=== PATIENT | female | born 1970 | race Two or more races ===

== ENCOUNTER 2024-11-30 13:38 | Inpatient (IN) | payer OTHER ==
[~2024-11-30] VITALS: Ht 170.2 cm; Wt 76.9 kg
[2024-11-30 14:32] VITALS: PULSE 122; RESP 18; O2SAT 97
[2024-11-30] MEDS: ACETAMINOPHEN 500 MG TAB or CAP PO ONE (14:43)
[2024-11-30 14:51] LABS: Urine Bacteria FEW /hpf (None Seen); Urine Blood 2+ /uL (Negative); Urine Clarity Turbid (Clear); Urine Color Light-Yellow (Yellow); Urine Protein, UAD 1+ (Negative); Urine Specific Gravity 1.012 (1.001-1.035); Urine Squamous Epithelial Cell FEW /hpf (<5); Urine Urobilinogen Normal (Negative); Urine WBC 114 /HPF (0-5); Urine pH 6.5 (5.0-9.0)
[2024-11-30] MEDS: SODIUM CHLORIDE 0.9% 1,000 ML IV ONE ×2 (14:55→15:08)
--- NOTE | 2024-11-30 15:04 | ED.PDOC ---
History of Present Illness HPI Comments 54F presents to the ER w/ no prior Hx associated to the c/c of Pubic Pain. Pt reports on having gradually worsening symptoms, of fever, Hematuria, fever and dysuria for 1 week. Pt reports that she saw her PCP on Tuesday of 11/28/23 and was prescribed of Flagyl which did not help the pain. PMHx of DM. Denies Chills, N/V/D, SOB, CP or no other associated symptom's, modifiers, recent injuries or sick contacts at this time. 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 Family History Family History: Reviewed,noncontributory to illness, Unknown Social History Smoker: Non-Smoker Alcohol: Denies ETOH Use Drugs: Denies Drug Use Lives In: Home Constitutional: reports: fever; denies: chills, diaphoresis, fatigue, malaise, sweats, weakness, others EENTM: denies: blurred vision, double vision, ear bleeding, ear discharge, ear drainage, ear pain, ear ringing, eye pain, eye redness, hearing loss, mouth pain, mouth swelling, nasal discharge, nose bleeding, nose congestion, nose pain, photophobia, tearing, throat pain, throat swelling, voice changes, others Respiratory: denies: cough, hemoptysis, orthopnea, SOB at rest, shortness of breath, SOB with excertion, stridor, wheezing, others Cardiovascular: denies: chest pain, dizzy spells, diaphoresis, Dyspnea on exertion, edema, irregular heart beat, left arm pain, lightheadedness, palpitations, PND, syncope, others Gastrointestinal: denies: abdomen distended, abdominal pain, blood streaked bowels, constipated, diarrhea, dysphagia, difficulty swallowing, hematemesis, melena, nausea, poor appetite, poor fluid intake, rectal bleeding, rectal pain, vomiting, others Genitourinary: reports: dysuria; denies: abnormal vagina bleeding, burning, dyspareunia, flank pain, frequency, hematuria, incontinence, pain, , vagina discharge, urgency, others Neurological: denies: dizziness, fainting, headache, left sided numbness, left sided weakness, numbness, paresthesia, pre-existing deficit, right sided numbness, right sided weakness, seizure, speech problems, tingling, tremors, weakness, others Musculoskeletal: denies: back pain, gout, joint pain, joint swelling, muscle pain, muscle stiffness, neck pain, others Integumetry: denies: bruises, change in color, change in hair/nails, dryness, laceration, lesions, lumps, rash, wounds, others Allergic/Immunocompromised: denies: Difficulty Healing, Frequent Infections, Hives, Itching, others Hematologic/Lymphatic: denies: anemia, blood clots, easy bleeding, easy bruising, swollen glands, others Endocrine: denies: excessive hunger, excessive sweating, excessive thirst, excessive urination, flushing, intolerance to cold, intolerance to heat, unexplained weight gain, unexplained weight loss, others Psychiatric: denies: anxiety, bipolar disorder, depression, hopeless, panic disorder, schizophrenia, sleepless, suicidal, others All Other Systems: Reviewed and Negative Physical Exam Exam Comments Tachycardic, Super Pubic Tenderness, Tachypneic, Febrile General Appearance: No Apparent Distress, Normal HEENT: Normal ENT Inspection, Pharynx Normal, TMs Normal Neck: Full Range of Motion, Non-Tender, Normal, Normal Inspection Respiratory: Chest Non-Tender, Lungs Clear, No Accessory Muscle Use, No Respiratory Distress, Normal Breath Sounds Cardiovascular: No Edema, No JVD, No Murmur, No Gallop, Normal Peripheral Pulses, Tachycardia Breast Exam: Deferred Gastrointestinal: No Organomegaly, Non Tender, No Pulsatile Mass, Normal Bowel Sounds, Soft Genitalia: Deferred Pelvic: Deferred Rectal: Deferred Extremities: No calf tenderness, Normal capillary refill, Normal inspection, Normal range of motion, Non-tender, No pedal edema Musculoskeletal : Apperance: Normal Neurologic: Alert, frame coverer II-XII nml as Tested, No Motor Deficits, Normal Affect, Normal Mood, No Sensory Deficits Cerebellar Function: Normal Reflexes: Normal Skin: Dry, Normal Color, Warm Lymphatic: No Adenopathy Was a procedure done? Was a procedure done?: No Differential Dx Considerations may include: Pyelonephritis, acute cystitis, viral syndrome, pneumonia X-Ray, Labs, Meds, VS Vital Signs Date Time Temp Pulse Resp B/P (MAP) Pulse Ox O2 Delivery O2 Flow Rate FiO2 11/30/24 16:45 99.2 100 17 113/70 (84) 95 99.2 11/30/24 16:45 11/30/24 15:45 100.5 11/30/24 15:45 100.5 114 19 127/66 (86) 95 100.5 11/30/24 14:43 101.4 11/30/24 14:32 101.4 122 18 127/69 (88) 97 101.4 11/30/24 14:32 122 18 97 Room Air 11/30/24 14:32 101.4 122 18 127/69 (88) 97 101.4 11/30/24 14:32 122 18 97 Room Air* 0 21 11/30/24 13:46 100.2 137 20 116/76 (89) 98 100.2 Lab Test 11/30/24 14:55 11/30/24 14:21 Range/Units White Blood Count 13.1 H 4.4-10.8 10^3/uL Red Blood Count 4.59 4.0-5.20 10^6/uL Hemoglobin 13.7 12.2-16.2 g/dL Hematocrit 41.4 36.0-46.0 % Mean Corpuscular Volume 90.3 80.0-100.0 fL Mean Corpuscular Hemoglobin 29.8 28.0-32.0 pg Mean Corpuscular Hemoglobin Concent 33.0 32.0-36.0 g/dL Red Cell Distribution Width 12.8 11.8-14.3 % Platelet Count 261 140-450 10^3/uL Mean Platelet Volume 7.9 6.9-10.8 fL Neutrophils (%) (Auto) 89.2 H 37.0-80.0 % Lymphocytes (%) (Auto) 5.6 L 10.0-50.0 % Monocytes (%) (Auto) 4.9 0.0-12.0 % Eosinophils (%) (Auto) 0.1 0.0-7.0 % Basophils (%) (Auto) 0.2 0.0-2.0 % Neutrophils # (Auto) 11.7 H 1.6-8.6 10 ^3/uL Lymphocytes # (Auto) 0.7 0.4-5.4 10 ^3/uL Monocytes # (Auto) 0.6 0-1.3 10 ^3/uL Eosinophils # (Auto) 0 0-0.8 10 ^3/uL Basophils # (Auto) 0 0-0.2 10 ^3/uL Nucleated Red Blood Cells 0.1 % Sodium Level 132 L 136-145 mmol/L Potassium Level 3.7 3.5-5.1 mmol/L Chloride Level 99 98-107 mmol/L Carbon Dioxide Level 23 20-31 mmol/L Anion Gap 10 5-15 Blood Urea Nitrogen 8 L 9-23 mg/dL Creatinine 0.83 0.550-1.02 mg/dL Glomerular Filtration Rate Calc 83 >90 mL/min BUN/Creatinine Ratio 9.6 L 10.0-20.0 Serum Glucose 245 H 74-106 mg/dL Lactic Acid Level 1.6 0.4-2.0 mmol/L Calcium Level 9.8 8.7-10.4 mg/dL Beta HCG, Quantitative 1.0 L 1.5-4.2 mIU/mL Urine Color Light-yellow Yellow Urine Clarity Turbid H Clear Urine pH 6.5 5.0-9.0 Urine Specific [place] 1.012 1.001-1.035 Urine Protein 1+ H Negative Urine Ketones 2+ H Negative Urine Blood 2+ H Negative /uL Urine Nitrite Negative Negative Urine Bilirubin Negative Negative Urine Urobilinogen Normal Negative mg/dL Urine Leukocyte Esterase 3+ Negative /uL Urine RBC 33 0 - 4 /hpf Urine Microscopic WBC 114 H 0-5 /HPF Urine Squamous Epithelial Cells Few <5 /hpf Urine Bacteria Few H None Seen /hpf Urine Glucose 4+ H Normal mg/dL Current Medications Medications (Trade) Dose Ordered Sig/Jamarcus Route Start Time Stop Time Status Last Admin Acetaminophen (Tylenol Tablet Or Capsule) 1,000 mg ONCE ONCE PO 11/30/24 14:45 11/30/24 14:53 DC 11/30/24 14:43 Sodium Chloride 1,000 ml @ 1,000 mls/hr Q1H ONCE IV 11/30/24 15:00 11/30/24 15:59 DC 11/30/24 14:55 Cefepime HCl 50 ml @ 12.5 mls/hr ONCE ONCE IV 11/30/24 15:00 11/30/24 18:59 11/30/24 15:16 Vancomycin HCl 250 ml @ 250 mls/hr ONCE ONCE IV 11/30/24 15:30 11/30/24 16:29 DC 11/30/24 15:33 Sodium Chloride 1,850 ml @ 1,850 mls/hr ONCE ONCE IV 11/30/24 15:45 11/30/24 16:44 DC 11/30/24 15:33 Time of 1ST Reevaluation: 15:25 Reevaluation 1ST: Unchanged Patient Education/Counseling: Diagnosis, Treatment, Prognosis Family Education/Counseling: No Family Present Departure 1 Departure Time of Disposition: 17:13 (Patient with acute pyelonephritis. Patient does not appear septic this time however again patient is high-risk we will discharge patient home with outpatient follow up.) Impression: Primary Impression: Acute pyelonephritis Disposition: ADMITTED INPATIENT Admit to: Med Surg Condition: Serious Critical Care Note Critical Care Time?: No Stability Stability form required: No I personally scribed for HARINDER FERNANDEZ MD ([email or web address]) on 11/30/24 at 15:04. Electronically submitted by Zion Kamara ([email or web address]). HARINDER FERNANDEZ MD Nov 30, 2024 15:04
[2024-11-30] MEDS: CEFEPIME 2GM/50ML NS 50 ML IV ONE (15:16)
[2024-11-30 15:21] LABS: Basophils # (auto) 0 10 ^3/uL (0-0.2); Basophils % (auto) 0.2 % (0.0-2.0); Eosinophils # (auto) 0 10 ^3/uL (0-0.8); Eosinophils % (auto) 0.1 % (0.0-7.0); Hematocrit 41.4 % (36.0-46.0); Hemoglobin 13.7 g/dL (12.2-16.2); Lymphocytes # (auto) 0.7 10 ^3/uL (0.4-5.4); Lymphocytes % (auto) 5.6 % (10.0-50.0); Mean Corpuscular Hemoglobin 29.8 pg (28.0-32.0); Mean Corpuscular Volume 90.3 fL (80.0-100.0); Monocytes # (auto) 0.6 10 ^3/uL (0-1.3); Monocytes % (auto) 4.9 % (0.0-12.0); Neutrophils # (auto) 11.7 10 ^3/uL (1.6-8.6); Neutrophils % (auto) 89.2 % (37.0-80.0); Nucleated Red Blood Cells % 0.1 %; Platelet Count (auto) 261 10^3/uL (140-450); Red Blood Cells 4.59 10^6/uL (4.0-5.20); Red Cell Distribution Width 12.8 % (11.8-14.3); White Blood Cell 13.1 10^3/uL (4.4-10.8)
[2024-11-30] MEDS: SODIUM CHLORIDE 0.9% 1,850 ML IV ONE (15:33)
[2024-11-30] MEDS: VANCOMYCIN 1GM/250ML KIT 250 ML IV ONE (15:33)
[2024-11-30 16:09] LABS: Chloride 99 mmol/L (98-107); Potassium 3.7 mmol/L (3.5-5.1)
[2024-11-30 16:10] LABS: Anion Gap 10 (5-15); Carbon Dioxide 23 mmol/L (20-31)
[2024-11-30 16:11] LABS: Calcium 9.8 mg/dL (8.7-10.4)
[2024-11-30 16:16] LABS: BUN/Creatinine Ratio 9.6 (10.0-20.0)
[2024-11-30 16:20] LABS: Blood Urea Nitrogen 8 mg/dL (9-23); Glucose 245 mg/dL (74-106); Sodium 132 mmol/L (136-145)
[2024-11-30 19:51] VITALS: PULSE 107; RESP 20; O2SAT 98
[2024-11-30] MEDS ORDERED: ONDANSETRON HCL 4 MG/2 ML VIAL IV PRN (20:15)
[2024-11-30] MEDS: MORPHINE SULFATE INJ 2 MG/ml SYRG IV ONE (20:20)
[2024-11-30] MEDS: ONDANSETRON HCL 4 MG/2 ML VIAL IV ONE (20:21)
--- NOTE | 2024-11-30 20:21 | DVHHP2 ---
Admitting Diagnosis: Abdominal pain History of Present Illness 54F presents to the ER w/ no prior Hx associated to the c/c of Pubic Pain. Pt reports on having gradually worsening symptoms, of fever, Hematuria, fever and dysuria for 1 week. Pt reports that she saw her PCP on Tuesday of 11/28/23 and was prescribed of Flagyl which did not help the pain. PMHx of DM. Denies Chills, N/V/D, SOB, CP or no other associated symptom's, modifiers, recent injuries or sick contacts at this time. 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 Family History Family History: Reviewed,noncontributory to illness, Unknown Social History Smoker: Non-Smoker Alcohol: Denies ETOH Use Drugs: Denies Drug Use Lives In: Home Allergies: Coded Allergies: Amoxicillin (Verified Allergy, Unknown, 11/30/24) Current Medications Current Medications Medications (Trade) Dose Ordered Sig/Jamarcus Route PRN Reason Start Time Stop Time Status Last Admin Ceftriaxone Sodium/Dextrose 50 ml @ 50 mls/hr DAILY IV 12/01/24 10:00 UNV Sodium Chloride (Saline Lock Ns) 10 ml Q8HR IV 11/30/24 22:00 UNV Docusate Sodium (Colace Capsule) 100 mg BIDPRN PRN PO FOR CONSTIPATION 11/30/24 20:15 UNV Acetaminophen (Tylenol Tablet) 650 mg Q6HP PRN PO PAIN SCALE 1-3 OR TEMP>100.4 11/30/24 20:15 UNV Acetaminophen/ Hydrocodone Bitart ([place] 5/325MG Tab) 1 tab Q4HP PRN PO MODERATE PAIN (4-6 PAIN SCALE) 11/30/24 20:15 UNV Hydromorphone HCl (Dilaudid Injection) 0.5 mg Q4HP PRN IV SEVERE PAIN (7-10 PAIN SCALE) 11/30/24 20:15 UNV Ondansetron HCl (Zofran) 4 mg Q4HP PRN IV NAUSEA / VOMITING 11/30/24 20:15 UNV Enoxaparin Sodium (Lovenox) 40 mg DAILY SC 12/01/24 10:00 UNV Vital Signs Vital Signs Date Time Temp Pulse Resp B/P (MAP) Pulse Ox O2 Delivery O2 Flow Rate FiO2 11/30/24 19:51 107 20 98 Room Air* 0 21 11/30/24 19:50 98.6 120/70 (87) 98.6 Physical Exam Generally-34 years old woman, well nourished well developed moderate distress HEENT-atraumatic normocephalic Heart-sinus tachycardic Lungs clear to auscultate bilaterally Abdomen soft, nondistended, suprapubic tenderness Musculoskeletal-no edema cyanosis positive CVA tenderness left Neuro-AO x3, no focal deficits Results Labs Test 11/30/24 14:55 11/30/24 14:21 Range/Units White Blood Count 13.1 H 4.4-10.8 10^3/uL Red Blood Count 4.59 4.0-5.20 10^6/uL Hemoglobin 13.7 12.2-16.2 g/dL Hematocrit 41.4 36.0-46.0 % Mean Corpuscular Volume 90.3 80.0-100.0 fL Mean Corpuscular Hemoglobin 29.8 28.0-32.0 pg Mean Corpuscular Hemoglobin Concent 33.0 32.0-36.0 g/dL Red Cell Distribution Width 12.8 11.8-14.3 % Platelet Count 261 140-450 10^3/uL Mean Platelet Volume 7.9 6.9-10.8 fL Neutrophils (%) (Auto) 89.2 H 37.0-80.0 % Lymphocytes (%) (Auto) 5.6 L 10.0-50.0 % Monocytes (%) (Auto) 4.9 0.0-12.0 % Eosinophils (%) (Auto) 0.1 0.0-7.0 % Basophils (%) (Auto) 0.2 0.0-2.0 % Neutrophils # (Auto) 11.7 H 1.6-8.6 10 ^3/uL Lymphocytes # (Auto) 0.7 0.4-5.4 10 ^3/uL Monocytes # (Auto) 0.6 0-1.3 10 ^3/uL Eosinophils # (Auto) 0 0-0.8 10 ^3/uL Basophils # (Auto) 0 0-0.2 10 ^3/uL Nucleated Red Blood Cells 0.1 % Sodium Level 132 L 136-145 mmol/L Potassium Level 3.7 3.5-5.1 mmol/L Chloride Level 99 98-107 mmol/L Carbon Dioxide Level 23 20-31 mmol/L Anion Gap 10 5-15 Blood Urea Nitrogen 8 L 9-23 mg/dL Creatinine 0.83 0.550-1.02 mg/dL Glomerular Filtration Rate Calc 83 >90 mL/min BUN/Creatinine Ratio 9.6 L 10.0-20.0 Serum Glucose 245 H 74-106 mg/dL Lactic Acid Level 1.6 0.4-2.0 mmol/L Calcium Level 9.8 8.7-10.4 mg/dL Beta HCG, Quantitative 1.0 L 1.5-4.2 mIU/mL Urine Color Light-yellow Yellow Urine Clarity Turbid H Clear Urine pH 6.5 5.0-9.0 Urine Specific [place] 1.012 1.001-1.035 Urine Protein 1+ H Negative Urine Ketones 2+ H Negative Urine Blood 2+ H Negative /uL Urine Nitrite Negative Negative Urine Bilirubin Negative Negative Urine Urobilinogen Normal Negative mg/dL Urine Leukocyte Esterase 3+ Negative /uL Urine RBC 33 0 - 4 /hpf Urine Microscopic WBC 114 H 0-5 /HPF Urine Squamous Epithelial Cells Few <5 /hpf Urine Bacteria Few H None Seen /hpf Urine Glucose 4+ H Normal mg/dL Primary Diagnosis Acute pyelonephritis Plan Positive UA, fever, tachycardic Ceftriaxone 2 g daily Check urine culture, blood culture IV fluids Pain control Bowel regimen Antiemetic Diabetic diet Full code Lovenox for DVT prophylaxis No GI prophylaxis needed Plan discussed with: Patient Date of Service: Nov 30, 2024 Billing Provider: LORI HERNANDEZ MD Common Visit Codes: [id number] INP/OBS CARE (HIGH) LORI HERNANDEZ MD Nov 30, 2024 20:21
[2024-11-30] MEDS ORDERED: DEXTROSE (50%) 50ML SYRG IV PRN (20:30)
[2024-11-30 21:00] VITALS: BP 120/72; PULSE 121; RESP 20; TEMP 100.6; O2SAT 96
[2024-11-30 21:30] VITALS: BP 120/72; PULSE 121; RESP 20; TEMP 100.6; O2SAT 96
[2024-11-30 21:45] VITALS: RESP 18
[2024-11-30] MEDS: ACCU-CHEK COMFORT CURVE STRIP VI SCH (22:00)
[2024-11-30] MEDS ORDERED: FER325T PO (22:27)
[2024-11-30] MEDS ORDERED: ASCO500T11 PO (22:27)
[2024-11-30] MEDS ORDERED: LUTE20CA PO (22:27)
[2024-11-30] MEDS ORDERED: ASHW125C PO (22:27)
[2024-11-30] MEDS ORDERED: CHOL25CH3 PO (22:28)
[2024-11-30] MEDS ORDERED: MAGN400T40 PO (22:29)
[2024-11-30] MEDS ORDERED: GLUC1CAP13 PO (22:31)
[2024-11-30] MEDS: LACTATED RINGER'S 1,000 ML IV ONE (23:02)
[2024-11-30] MEDS: SODIUM CHLOR 0.9% PF (SALINE LOCK) 10ML VIAL/SYR IV SCH (23:04)
[2024-11-30] MEDS: InsuLIN REG 1unit/0.01ml Soln (100units/ml) SC SCH (23:25)
[2024-12-01] VITALS (8 sets, daily range): BP systolic 99–123; BP diastolic 59–69; PULSE 78–122; RESP 16–24; TEMP 97.8–102.9; O2SAT 94–99
[2024-12-01] MEDS: HYDROmorphone HCL 2 MG/ML VL/or syr IV PRN (02:52)
[2024-12-01 06:57] LABS: Basophils # (auto) 0 10 ^3/uL (0-0.2); Basophils % (auto) 0.3 % (0.0-2.0); Eosinophils # (auto) 0 10 ^3/uL (0-0.8); Eosinophils % (auto) 0.2 % (0.0-7.0); Hemoglobin 11.7 g/dL (12.2-16.2); Lymphocytes # (auto) 1.1 10 ^3/uL (0.4-5.4); Lymphocytes % (auto) 9.7 % (10.0-50.0); Mean Corpuscular Hemoglobin 30.5 pg (28.0-32.0); Mean Corpuscular Hgb Conc. 34.4 g/dL (32.0-36.0); Mean Corpuscular Volume 88.7 fL (80.0-100.0); Monocytes # (auto) 0.8 10 ^3/uL (0-1.3); Monocytes % (auto) 7.7 % (0.0-12.0); Neutrophils % (auto) 82.1 % (37.0-80.0); Platelet Count (auto) 240 10^3/uL (140-450); Red Blood Cells 3.83 10^6/uL (4.0-5.20); Red Cell Distribution Width 12.8 % (11.8-14.3); White Blood Cell 10.9 10^3/uL (4.4-10.8)
[2024-12-01 07:18] LABS: Albumin 3.6 g/dL (3.2-4.8); Anion Gap 7 (5-15); Aspartate Aminotransferase 18 U/L (13-40); BUN/Creatinine Ratio 8.8 (10.0-20.0); Bilirubin, Total 0.8 mg/dL (0.2-1.0); Calcium 8.9 mg/dL (8.7-10.4); Carbon Dioxide 24 mmol/L (20-31); Chloride 104 mmol/L (98-107); Total Protein 5.9 g/dL (5.7-8.2)
[2024-12-01 07:21] LABS: Alanine Aminotransferase 57 U/L (7-40); Alkaline Phosphatase 134 U/L (46-116); Blood Urea Nitrogen 7 mg/dL (9-23); Glucose 202 mg/dL (74-106); Potassium 3.4 mmol/L (3.5-5.1); Sodium 135 mmol/L (136-145)
[2024-12-01] MEDS: DOCUSATE SOD 100 MG CAP PO PRN (08:44)
[2024-12-01] MEDS: cefTRIAXone 2GM/50ML D5W 50 ML IV SCH (08:44)
[2024-12-01] MEDS: ENOXAPARIN SOD 40 MG/0.4 ML SYRINGE SC SCH (08:44)
[2024-12-01] MEDS: HYDROcodone-ACET 5/325MG TAB PO PRN (08:45)
--- NOTE | 2024-12-01 13:31 | DVHPN2 ---
Reviewed: Care Plan, H&P, Labs, Medications, Previous Orders, Radiology Changes from previous H/P or p: No Changes Objective Vitals Vital Signs Date Time Temp Pulse Resp B/P (MAP) Pulse Ox O2 Delivery O2 Flow Rate FiO2 12/01/24 11:51 99.2 107 17 121/69 (86) 99 99.2 12/01/24 08:00 Room Air* 0 21 Intake/Output Intake and Output 12/01/24 07:00 Intake Total 4218 ml Balance 4218 ml Intake Oral 518 ml IV Total 3700 ml # Voids 3 Medications Current Medications Medications Dose Ordered Sig/Jamarcus Route Start Time Stop Time Status Last Admin Dose Admin Ceftriaxone Sodium/Dextrose 50 ml @ 50 mls/hr DAILY IV 12/01/24 10:00 12/01/24 08:44 50 MLS/HR Sodium Chloride 10 ml Q8HR IV 11/30/24 22:00 12/01/24 13:25 10 ML Docusate Sodium 100 mg BIDPRN PRN PO 11/30/24 20:15 12/01/24 08:44 100 MG Acetaminophen 650 mg Q6HP PRN PO 11/30/24 20:15 Acetaminophen/ Hydrocodone Bitart 1 tab Q4HP PRN PO 11/30/24 20:15 12/01/24 08:45 1 TAB Hydromorphone HCl 0.5 mg Q4HP PRN IV 11/30/24 20:15 12/01/24 02:52 0.5 MG Ondansetron HCl 4 mg Q4HP PRN IV 11/30/24 20:15 Enoxaparin Sodium 40 mg DAILY SC 12/01/24 10:00 12/01/24 08:44 40 MG Diagnostic Test (Pha) 1 strip ACHS 11/30/24 22:00 12/01/24 11:41 1 STRIP Insulin Human Regular ACHS SC 11/30/24 22:00 12/01/24 11:54 4 UNITS Dextrose 50 ml UD PRN IV 11/30/24 20:30 Laboratory Results Laboratory Tests 12/01/24 06:23 Chemistry Test 11/30/24 14:55 12/01/24 06:23 Calcium Level 9.8 mg/dL (8.7-10.4) 8.9 mg/dL (8.7-10.4) Albumin 3.6 g/dL (3.2-4.8) Total Protein 5.9 g/dL (5.7-8.2) LFT Test 12/01/24 06:23 Alanine Aminotransferase (ALT) 57 U/L (7-40) H Alkaline Phosphatase 134 U/L (46-116) H Aspartate Amino Transferase (AST) 18 U/L (13-40) Total Bilirubin 0.8 mg/dL (0.2-1.0) Urinalysis Test 11/30/24 14:21 Urine Color Light-yellow (Yellow) Urine Clarity Turbid (Clear) H Urine pH 6.5 (5.0-9.0) Urine Specific [place] 1.012 (1.001-1.035) Urine Protein 1+ (Negative) H Urine Ketones 2+ (Negative) H Urine Blood 2+ /uL (Negative) H Urine Nitrite Negative (Negative) Urine Bilirubin Negative (Negative) Urine Urobilinogen Normal mg/dL (Negative) Urine Leukocyte Esterase 3+ /uL (Negative) Urine RBC 33 /hpf (0 - 4) Urine Microscopic WBC 114 /HPF (0-5) H Urine Squamous Epithelial Cells Few /hpf (<5) Urine Bacteria Few /hpf (None Seen) H Urine Glucose 4+ mg/dL (Normal) H Microbiology Microbiology Date/Time Source Procedure Growth Status 11/30/24 14:55 Blood Blood Culture - Preliminary Resulted 11/30/24 14:21 Voided Urine Urine Culture - Preliminary Resulted Labs and/or images reviewed: Labs reviewed by me, Image(s) reviewed by me Assessment/Plan Assessment/Plan Sepsis secondary to urinary tract infection Acute urinary tract infection: Blood cultures urine cultures Rocephin Bacteremia with a Gram-negative rods: Continue Rocephin Acute dehydration: IV fluids Uncontrolled diabetes: Insulin sliding scale Plan discussed with: Patient Date of Service: Dec 01, 2024 Billing Provider: NIGEL NERI MD Common Visit Codes: [id number] INP/OBS CARE(HIGH) NIGEL NERI MD Dec 01, 2024 13:31
[2024-12-01] MEDS: ACETAMINOPHEN 325 MG TAB PO PRN (16:57)
[2024-12-02] VITALS (7 sets, daily range): BP systolic 108–125; BP diastolic 64–93; PULSE 89–108; RESP 16–18; TEMP 97.8–100.8; O2SAT 95–99
[2024-12-02 06:55] LABS: Basophils # (auto) 0 10 ^3/uL (0-0.2); Basophils % (auto) 0.5 % (0.0-2.0); Eosinophils # (auto) 0 10 ^3/uL (0-0.8); Eosinophils % (auto) 0.4 % (0.0-7.0); Hematocrit 33.4 % (36.0-46.0); Hemoglobin 11.3 g/dL (12.2-16.2); Lymphocytes % (auto) 14.2 % (10.0-50.0); Mean Corpuscular Hemoglobin 30.1 pg (28.0-32.0); Mean Corpuscular Hgb Conc. 33.7 g/dL (32.0-36.0); Mean Corpuscular Volume 89.3 fL (80.0-100.0); Monocytes # (auto) 0.6 10 ^3/uL (0-1.3); Monocytes % (auto) 7.6 % (0.0-12.0); Neutrophils # (auto) 5.7 10 ^3/uL (1.6-8.6); Neutrophils % (auto) 77.3 % (37.0-80.0); Platelet Count (auto) 246 10^3/uL (140-450); Red Blood Cells 3.74 10^6/uL (4.0-5.20); White Blood Cell 7.3 10^3/uL (4.4-10.8)
[2024-12-02 07:18] LABS: Alanine Aminotransferase 52 U/L (7-40); Albumin 3.5 g/dL (3.2-4.8); Alkaline Phosphatase 162 U/L (46-116); Anion Gap 8 (5-15); Aspartate Aminotransferase 28 U/L (13-40); Bilirubin, Total 0.7 mg/dL (0.2-1.0); Blood Urea Nitrogen 9 mg/dL (9-23); Carbon Dioxide 26 mmol/L (20-31); Chloride 104 mmol/L (98-107); Glucose 185 mg/dL (74-106); Potassium 3.2 mmol/L (3.5-5.1); Sodium 138 mmol/L (136-145)
--- NOTE | 2024-12-02 08:35 | DVHPN2 ---
Reviewed: Care Plan, H&P, Labs, Medications, Previous Orders, Radiology Changes from previous H/P or p: No Changes Objective Vitals Vital Signs Date Time Temp Pulse Resp B/P (MAP) Pulse Ox O2 Delivery O2 Flow Rate FiO2 12/02/24 05:00 97.8 89 18 108/66 (80) 95 97.8 12/01/24 20:00 Room Air* 0 21 Intake/Output Intake and Output 12/02/24 07:00 Intake Total 1500 ml Balance 1500 ml Intake Oral 1450 ml IV Total 50 ml # Voids 8 Medications Current Medications Medications Dose Ordered Sig/Jamarcus Route Start Time Stop Time Status Last Admin Dose Admin Ceftriaxone Sodium/Dextrose 50 ml @ 50 mls/hr DAILY IV 12/01/24 10:00 12/01/24 08:44 50 MLS/HR Sodium Chloride 10 ml Q8HR IV 11/30/24 22:00 12/02/24 06:00 10 ML Docusate Sodium 100 mg BIDPRN PRN PO 11/30/24 20:15 12/01/24 08:44 100 MG Acetaminophen 650 mg Q6HP PRN PO 11/30/24 20:15 12/02/24 00:48 650 MG Acetaminophen/ Hydrocodone Bitart 1 tab Q4HP PRN PO 11/30/24 20:15 12/01/24 08:45 1 TAB Hydromorphone HCl 0.5 mg Q4HP PRN IV 11/30/24 20:15 12/01/24 02:52 0.5 MG Ondansetron HCl 4 mg Q4HP PRN IV 11/30/24 20:15 Enoxaparin Sodium 40 mg DAILY SC 12/01/24 10:00 12/01/24 08:44 40 MG Diagnostic Test (Pha) 1 strip ACHS 11/30/24 22:00 12/02/24 06:37 1 STRIP Insulin Human Regular ACHS SC 11/30/24 22:00 12/02/24 06:40 4 UNITS Dextrose 50 ml UD PRN IV 11/30/24 20:30 Laboratory Results Laboratory Tests 12/02/24 05:54 Chemistry Test 12/02/24 05:54 Albumin 3.5 g/dL (3.2-4.8) Calcium Level 9.0 mg/dL (8.7-10.4) Total Protein 6.0 g/dL (5.7-8.2) LFT Test 12/02/24 05:54 Alanine Aminotransferase (ALT) 52 U/L (7-40) H Alkaline Phosphatase 162 U/L (46-116) H Aspartate Amino Transferase (AST) 28 U/L (13-40) Total Bilirubin 0.7 mg/dL (0.2-1.0) Urinalysis Test 11/30/24 14:21 Urine Color Light-yellow (Yellow) Urine Clarity Turbid (Clear) H Urine pH 6.5 (5.0-9.0) Urine Specific [place] 1.012 (1.001-1.035) Urine Protein 1+ (Negative) H Urine Ketones 2+ (Negative) H Urine Blood 2+ /uL (Negative) H Urine Nitrite Negative (Negative) Urine Bilirubin Negative (Negative) Urine Urobilinogen Normal mg/dL (Negative) Urine Leukocyte Esterase 3+ /uL (Negative) Urine RBC 33 /hpf (0 - 4) Urine Microscopic WBC 114 /HPF (0-5) H Urine Squamous Epithelial Cells Few /hpf (<5) Urine Bacteria Few /hpf (None Seen) H Urine Glucose 4+ mg/dL (Normal) H Microbiology Microbiology Date/Time Source Procedure Growth Status 11/30/24 14:55 Blood Blood Culture - Preliminary Resulted 11/30/24 14:21 Voided Urine Urine Culture - Preliminary Resulted Labs and/or images reviewed: Labs reviewed by me, Image(s) reviewed by me Assessment/Plan Assessment/Plan Sepsis secondary to urinary tract infection Acute urinary tract infection: Blood cultures urine cultures Rocephin Bacteremia with Gram-negative rods: Continue Rocephin Acute dehydration: IV fluids Uncontrolled diabetes: Insulin sliding scale Plan discussed with: Patient Date of Service: Dec 02, 2024 Billing Provider: NIGEL NERI MD Common Visit Codes: [id number] INP/OBS CARE(HIGH) NIGEL NERI MD Dec 02, 2024 08:35
[2024-12-03] VITALS (8 sets, daily range): BP systolic 126–136; BP diastolic 71–80; PULSE 76–96; RESP 16–20; TEMP 97.3–99.2; O2SAT 95–97
[2024-12-03 06:44] LABS: Anion Gap 7 (5-15); Aspartate Aminotransferase 22 U/L (13-40); BUN/Creatinine Ratio 9.1 (10.0-20.0); Calcium 8.8 mg/dL (8.7-10.4); Carbon Dioxide 27 mmol/L (20-31); Chloride 105 mmol/L (98-107); Sodium 139 mmol/L (136-145); Total Protein 6.1 g/dL (5.7-8.2)
[2024-12-03 06:45] LABS: Bilirubin, Total 0.5 mg/dL (0.2-1.0)
[2024-12-03 06:46] LABS: Alanine Aminotransferase 47 U/L (7-40); Albumin 3.6 g/dL (3.2-4.8); Alkaline Phosphatase 183 U/L (46-116); Blood Urea Nitrogen 6 mg/dL (9-23); Glucose 182 mg/dL (74-106); Potassium 3.3 mmol/L (3.5-5.1)
[2024-12-03 07:04] LABS: Hemoglobin 10.9 g/dL (12.2-16.2); Mean Corpuscular Hemoglobin 30.1 pg (28.0-32.0); Mean Corpuscular Volume 88.5 fL (80.0-100.0); Platelet Count (auto) 271 10^3/uL (140-450); Red Blood Cells 3.61 10^6/uL (4.0-5.20); Red Cell Distribution Width 12.9 % (11.8-14.3); White Blood Cell 5.8 10^3/uL (4.4-10.8)
[2024-12-03 07:14] LABS: Basophils % (manual) 0 (0.0-2.0); Metamyelocytes % 0; Myelocytes % 0; Promyelocytes % 0; Reactive Lymphocytes 0
[2024-12-03 08:58] LABS: Hepatitis B Surface Antigen Negative (Negative)
[2024-12-03 09:20] LABS: Band Neutrophils % (manual) 2; Blast Cells 3; Eosinophils % (manual) 2 (0-7); Lymphocytes % (manual) 13 (10.0-50.0); Monocytes % (manual) 10 (0-12); Platelet Estimate Adequate
[2024-12-03 09:40] LABS: Hepatitis C Antibody Negative (Negative)
--- NOTE | 2024-12-03 09:58 | DVHPN2 ---
Reviewed: Care Plan, H&P, Labs, Medications, Previous Orders, Radiology Changes from previous H/P or p: No Changes Objective Vitals Vital Signs Date Time Temp Pulse Resp B/P (MAP) Pulse Ox O2 Delivery O2 Flow Rate FiO2 12/03/24 05:00 98.3 83 17 136/77 (96) 96 98.3 12/02/24 20:00 Room Air* 0 21 Intake/Output Intake and Output 12/03/24 07:00 Intake Total 3650 ml Output Total 1000 ml Balance 2650 ml Intake Oral 3600 ml IV Total 50 ml Output Urine Total 1000 ml # Voids 6 # Bowel Movements 2 Medications Current Medications Medications Dose Ordered Sig/Jamarcus Route Start Time Stop Time Status Last Admin Dose Admin Ceftriaxone Sodium/Dextrose 50 ml @ 50 mls/hr DAILY IV 12/01/24 10:00 12/02/24 12:16 50 MLS/HR Sodium Chloride 10 ml Q8HR IV 11/30/24 22:00 12/03/24 06:22 10 ML Docusate Sodium 100 mg BIDPRN PRN PO 11/30/24 20:15 12/02/24 12:29 100 MG Acetaminophen 650 mg Q6HP PRN PO 11/30/24 20:15 12/02/24 00:48 650 MG Acetaminophen/ Hydrocodone Bitart 1 tab Q4HP PRN PO 11/30/24 20:15 12/01/24 08:45 1 TAB Hydromorphone HCl 0.5 mg Q4HP PRN IV 11/30/24 20:15 12/02/24 18:03 0.5 MG Ondansetron HCl 4 mg Q4HP PRN IV 11/30/24 20:15 Enoxaparin Sodium 40 mg DAILY SC 12/01/24 10:00 12/02/24 12:15 40 MG Diagnostic Test (Pha) 1 strip ACHS 11/30/24 22:00 12/03/24 06:22 1 STRIP Insulin Human Regular ACHS SC 11/30/24 22:00 12/03/24 06:28 3 UNITS Dextrose 50 ml UD PRN IV 11/30/24 20:30 Guaifenesin/ Dextromethorphan 15 ml Q6HP PRN PO 12/02/24 18:30 Laboratory Results Laboratory Tests 12/03/24 05:43 Chemistry Test 12/03/24 05:43 Albumin 3.6 g/dL (3.2-4.8) Calcium Level 8.8 mg/dL (8.7-10.4) Total Protein 6.1 g/dL (5.7-8.2) LFT Test 12/03/24 05:43 Alanine Aminotransferase (ALT) 47 U/L (7-40) H Alkaline Phosphatase 183 U/L (46-116) H Aspartate Amino Transferase (AST) 22 U/L (13-40) Total Bilirubin 0.5 mg/dL (0.2-1.0) Urinalysis Test 11/30/24 14:21 Urine Color Light-yellow (Yellow) Urine Clarity Turbid (Clear) H Urine pH 6.5 (5.0-9.0) Urine Specific [place] 1.012 (1.001-1.035) Urine Protein 1+ (Negative) H Urine Ketones 2+ (Negative) H Urine Blood 2+ /uL (Negative) H Urine Nitrite Negative (Negative) Urine Bilirubin Negative (Negative) Urine Urobilinogen Normal mg/dL (Negative) Urine Leukocyte Esterase 3+ /uL (Negative) Urine RBC 33 /hpf (0 - 4) Urine Microscopic WBC 114 /HPF (0-5) H Urine Squamous Epithelial Cells Few /hpf (<5) Urine Bacteria Few /hpf (None Seen) H Urine Glucose 4+ mg/dL (Normal) H Microbiology Microbiology Date/Time Source Procedure Growth Status 11/30/24 14:55 Blood Blood Culture - Preliminary Resulted 11/30/24 14:21 Voided Urine Urine Culture - Preliminary Resulted Labs and/or images reviewed: Labs reviewed by me, Image(s) reviewed by me Assessment/Plan Assessment/Plan Sepsis secondary to urinary tract infection Acute urinary tract infection: urine cultures growing Gram-negative rods, continue Rocephin Bacteremia with Gram-negative rods: Continue Rocephin Acute dehydration: IV fluids Uncontrolled diabetes: Insulin sliding scale Plan discussed with: Patient Date of Service: Dec 03, 2024 Billing Provider: NIGEL NERI MD Common Visit Codes: [id number] INP/OBS CARE(HIGH) NIGEL NERI MD Dec 03, 2024 09:58
[2024-12-03] MEDS: guaiFENesin-DM 100/10mg/5ml SYR PO PRN (20:42)
[2024-12-04 01:00] VITALS: BP 125/76; PULSE 75; RESP 18; TEMP 98.5; O2SAT 98
[2024-12-04 05:00] VITALS: BP 140/84; PULSE 78; RESP 17; TEMP 98.1; O2SAT 97
[2024-12-04 06:02] LABS: Basophils # (auto) 0 10 ^3/uL (0-0.2); Basophils % (auto) 0.5 % (0.0-2.0); Eosinophils # (auto) 0.1 10 ^3/uL (0-0.8); Hematocrit 30.9 % (36.0-46.0); Hemoglobin 10.7 g/dL (12.2-16.2); Lymphocytes # (auto) 1.8 10 ^3/uL (0.4-5.4); Lymphocytes % (auto) 24.5 % (10.0-50.0); Mean Corpuscular Hemoglobin 30.4 pg (28.0-32.0); Mean Corpuscular Hgb Conc. 34.5 g/dL (32.0-36.0); Mean Corpuscular Volume 88.3 fL (80.0-100.0); Monocytes # (auto) 0.9 10 ^3/uL (0-1.3); Monocytes % (auto) 12.5 % (0.0-12.0); Neutrophils # (auto) 4.4 10 ^3/uL (1.6-8.6); Neutrophils % (auto) 60.5 % (37.0-80.0); Nucleated Red Blood Cells % 0.1 %; Platelet Count (auto) 317 10^3/uL (140-450); White Blood Cell 7.2 10^3/uL (4.4-10.8)
[2024-12-04 06:22] LABS: Anion Gap 9 (5-15); BUN/Creatinine Ratio 11.9 (10.0-20.0); Carbon Dioxide 25 mmol/L (20-31); Chloride 106 mmol/L (98-107); Potassium 3.6 mmol/L (3.5-5.1); Sodium 140 mmol/L (136-145); Total Protein 6.2 g/dL (5.7-8.2)
[2024-12-04 06:23] LABS: Albumin 3.7 g/dL (3.2-4.8); Aspartate Aminotransferase 32 U/L (13-40); Bilirubin, Total 0.5 mg/dL (0.2-1.0)
[2024-12-04 06:33] LABS: Alanine Aminotransferase 48 U/L (7-40); Alkaline Phosphatase 203 U/L (46-116); Blood Urea Nitrogen 8 mg/dL (9-23); Glucose 194 mg/dL (74-106)
[2024-12-04 08:30] VITALS: BP 122/97; PULSE 85; RESP 16; TEMP 98.7; O2SAT 98
--- NOTE | 2024-12-04 09:13 | DVHPN2 ---
Reviewed: Care Plan, H&P, Labs, Medications, Previous Orders, Radiology Changes from previous H/P or p: No Changes Objective Vitals Vital Signs Date Time Temp Pulse Resp B/P (MAP) Pulse Ox O2 Delivery O2 Flow Rate FiO2 12/04/24 05:00 98.1 78 17 140/84 (102) 97 98.1 12/03/24 20:00 Room Air* 0 21 Intake/Output Intake and Output 12/04/24 07:00 Intake Total 4670 ml Output Total 2400 ml Balance 2270 ml Intake Oral 4620 ml IV Total 50 ml Output Urine Total 2400 ml Medications Current Medications Medications Dose Ordered Sig/Jamarcus Route Start Time Stop Time Status Last Admin Dose Admin Ceftriaxone Sodium/Dextrose 50 ml @ 50 mls/hr DAILY IV 12/01/24 10:00 12/03/24 11:35 50 MLS/HR Sodium Chloride 10 ml Q8HR IV 11/30/24 22:00 12/04/24 06:53 10 ML Docusate Sodium 100 mg BIDPRN PRN PO 11/30/24 20:15 12/02/24 12:29 100 MG Acetaminophen 650 mg Q6HP PRN PO 11/30/24 20:15 12/02/24 00:48 650 MG Acetaminophen/ Hydrocodone Bitart 1 tab Q4HP PRN PO 11/30/24 20:15 12/01/24 08:45 1 TAB Hydromorphone HCl 0.5 mg Q4HP PRN IV 11/30/24 20:15 12/02/24 18:03 0.5 MG Ondansetron HCl 4 mg Q4HP PRN IV 11/30/24 20:15 Enoxaparin Sodium 40 mg DAILY SC 12/01/24 10:00 12/03/24 11:35 40 MG Diagnostic Test (Pha) 1 strip ACHS 11/30/24 22:00 12/04/24 06:55 1 STRIP Insulin Human Regular ACHS SC 11/30/24 22:00 12/04/24 06:54 3 UNITS Dextrose 50 ml UD PRN IV 11/30/24 20:30 Guaifenesin/ Dextromethorphan 15 ml Q6HP PRN PO 12/02/24 18:30 12/03/24 20:42 15 ML Laboratory Results Laboratory Tests 12/04/24 05:17 Chemistry Test 12/04/24 05:17 Albumin 3.7 g/dL (3.2-4.8) Calcium Level 9.0 mg/dL (8.7-10.4) Total Protein 6.2 g/dL (5.7-8.2) LFT Test 12/04/24 05:17 Alanine Aminotransferase (ALT) 48 U/L (7-40) H Alkaline Phosphatase 203 U/L (46-116) H Aspartate Amino Transferase (AST) 32 U/L (13-40) Total Bilirubin 0.5 mg/dL (0.2-1.0) Urinalysis Test 11/30/24 14:21 Urine Color Light-yellow (Yellow) Urine Clarity Turbid (Clear) H Urine pH 6.5 (5.0-9.0) Urine Specific [place] 1.012 (1.001-1.035) Urine Protein 1+ (Negative) H Urine Ketones 2+ (Negative) H Urine Blood 2+ /uL (Negative) H Urine Nitrite Negative (Negative) Urine Bilirubin Negative (Negative) Urine Urobilinogen Normal mg/dL (Negative) Urine Leukocyte Esterase 3+ /uL (Negative) Urine RBC 33 /hpf (0 - 4) Urine Microscopic WBC 114 /HPF (0-5) H Urine Squamous Epithelial Cells Few /hpf (<5) Urine Bacteria Few /hpf (None Seen) H Urine Glucose 4+ mg/dL (Normal) H Microbiology Microbiology Date/Time Source Procedure Growth Status 11/30/24 14:55 Blood Blood Culture - Preliminary Resulted 11/30/24 14:21 Voided Urine Urine Culture - Preliminary Resulted Labs and/or images reviewed: Labs reviewed by me, Image(s) reviewed by me Assessment/Plan Assessment/Plan Sepsis secondary to urinary tract infection Acute urinary tract infection: urine cultures growing coiliforms, continue Rocephin Bacteremia with Gram-negative rods: Continue Rocephin Acute dehydration: IV fluids Uncontrolled diabetes: Insulin sliding scale Final blood culture and urine cultures reports pending as on 12/04/2024 Will repeat blood cultures Plan discussed with: Patient Date of Service: Dec 04, 2024 Billing Provider: NIGEL NERI MD Common Visit Codes: [id number] INP/OBS CARE(HIGH) NIGEL NERI MD Dec 04, 2024 09:13
[2024-12-04 12:30] VITALS: BP 123/73; PULSE 78; RESP 16; TEMP 97.9; O2SAT 98
[2024-12-04 16:30] VITALS: BP_SYST 120; BP_SYST 155; BP_DIAS 81; BP_DIAS 96; PULSE 82; RESP 16; TEMP 98.4; O2SAT 97
[2024-12-04 21:00] VITALS: BP 124/76; PULSE 78; RESP 15; TEMP 98.3; O2SAT 98
[2024-12-05 00:46] VITALS: BP 112/65; PULSE 78; RESP 20; TEMP 98; O2SAT 96
[2024-12-05 05:00] VITALS: BP 116/68; PULSE 70; RESP 20; TEMP 97.9; O2SAT 92
[2024-12-05 06:04] LABS: Basophils # (auto) 0 10 ^3/uL (0-0.2); Basophils % (auto) 0.5 % (0.0-2.0); Eosinophils # (auto) 0.2 10 ^3/uL (0-0.8); Eosinophils % (auto) 2.9 % (0.0-7.0); Hematocrit 37.8 % (36.0-46.0); Lymphocytes # (auto) 2.2 10 ^3/uL (0.4-5.4); Lymphocytes % (auto) 28.3 % (10.0-50.0); Mean Corpuscular Hemoglobin 30.6 pg (28.0-32.0); Mean Corpuscular Hgb Conc. 34.4 g/dL (32.0-36.0); Mean Corpuscular Volume 88.8 fL (80.0-100.0); Monocytes # (auto) 0.9 10 ^3/uL (0-1.3); Monocytes % (auto) 11.1 % (0.0-12.0); Neutrophils # (auto) 4.5 10 ^3/uL (1.6-8.6); Neutrophils % (auto) 57.2 % (37.0-80.0); Platelet Count (auto) 432 10^3/uL (140-450); Red Blood Cells 4.26 10^6/uL (4.0-5.20); Red Cell Distribution Width 13.2 % (11.8-14.3); White Blood Cell 7.8 10^3/uL (4.4-10.8)
[2024-12-05 06:11] LABS: Albumin 4.4 g/dL (3.2-4.8); Anion Gap 10 (5-15); BUN/Creatinine Ratio 14.9 (10.0-20.0); Blood Urea Nitrogen 10 mg/dL (9-23); Calcium 9.9 mg/dL (8.7-10.4); Carbon Dioxide 25 mmol/L (20-31); Chloride 105 mmol/L (98-107); Potassium 3.9 mmol/L (3.5-5.1); Sodium 140 mmol/L (136-145); Total Protein 7.6 g/dL (5.7-8.2)
[2024-12-05 06:12] LABS: Bilirubin, Total 0.6 mg/dL (0.2-1.0)
[2024-12-05 06:17] LABS: Alanine Aminotransferase 87 U/L (7-40); Alkaline Phosphatase 239 U/L (46-116); Aspartate Aminotransferase 92 U/L (13-40); Glucose 178 mg/dL (74-106)
--- NOTE | 2024-12-05 08:36 | DVHPN2 ---
Reviewed: Care Plan, H&P, Labs, Medications, Previous Orders, Radiology Changes from previous H/P or p: No Changes Objective Vitals Vital Signs Date Time Temp Pulse Resp B/P (MAP) Pulse Ox O2 Delivery O2 Flow Rate FiO2 12/05/24 05:00 97.9 70 20 116/68 (84) 92 97.9 12/04/24 20:00 Room Air* 0 21 Intake/Output Intake and Output 12/05/24 07:00 Intake Total 4450 ml Output Total 0 ml Balance 4450 ml Intake Oral 4400 ml IV Total 50 ml Output Urine Total 0 ml # Voids 10 Medications Current Medications Medications Dose Ordered Sig/Jamarcus Route Start Time Stop Time Status Last Admin Dose Admin Ceftriaxone Sodium/Dextrose 50 ml @ 50 mls/hr DAILY IV 12/01/24 10:00 12/04/24 10:10 50 MLS/HR Sodium Chloride 10 ml Q8HR IV 11/30/24 22:00 12/05/24 05:25 10 ML Docusate Sodium 100 mg BIDPRN PRN PO 11/30/24 20:15 12/02/24 12:29 100 MG Acetaminophen 650 mg Q6HP PRN PO 11/30/24 20:15 12/02/24 00:48 650 MG Acetaminophen/ Hydrocodone Bitart 1 tab Q4HP PRN PO 11/30/24 20:15 12/01/24 08:45 1 TAB Hydromorphone HCl 0.5 mg Q4HP PRN IV 11/30/24 20:15 12/02/24 18:03 0.5 MG Ondansetron HCl 4 mg Q4HP PRN IV 11/30/24 20:15 Enoxaparin Sodium 40 mg DAILY SC 12/01/24 10:00 12/03/24 11:35 40 MG Diagnostic Test (Pha) 1 strip ACHS 11/30/24 22:00 12/05/24 06:05 1 STRIP Insulin Human Regular ACHS SC 11/30/24 22:00 12/05/24 06:05 3 UNITS Dextrose 50 ml UD PRN IV 11/30/24 20:30 Guaifenesin/ Dextromethorphan 15 ml Q6HP PRN PO 12/02/24 18:30 12/03/24 20:42 15 ML Laboratory Results Laboratory Tests 12/05/24 05:21 Chemistry Test 12/05/24 05:21 Albumin 4.4 g/dL (3.2-4.8) Calcium Level 9.9 mg/dL (8.7-10.4) Total Protein 7.6 g/dL (5.7-8.2) LFT Test 12/05/24 05:21 Alanine Aminotransferase (ALT) 87 U/L (7-40) H Alkaline Phosphatase 239 U/L (46-116) H Aspartate Amino Transferase (AST) 92 U/L (13-40) H Total Bilirubin 0.6 mg/dL (0.2-1.0) Urinalysis Test 11/30/24 14:21 Urine Color Light-yellow (Yellow) Urine Clarity Turbid (Clear) H Urine pH 6.5 (5.0-9.0) Urine Specific [place] 1.012 (1.001-1.035) Urine Protein 1+ (Negative) H Urine Ketones 2+ (Negative) H Urine Blood 2+ /uL (Negative) H Urine Nitrite Negative (Negative) Urine Bilirubin Negative (Negative) Urine Urobilinogen Normal mg/dL (Negative) Urine Leukocyte Esterase 3+ /uL (Negative) Urine RBC 33 /hpf (0 - 4) Urine Microscopic WBC 114 /HPF (0-5) H Urine Squamous Epithelial Cells Few /hpf (<5) Urine Bacteria Few /hpf (None Seen) H Urine Glucose 4+ mg/dL (Normal) H Microbiology Microbiology Date/Time Source Procedure Growth Status 11/30/24 14:55 Blood Blood Culture - Preliminary Resulted 11/30/24 14:21 Voided Urine Urine Culture - Preliminary Resulted Labs and/or images reviewed: Labs reviewed by me, Image(s) reviewed by me Assessment/Plan Assessment/Plan Sepsis secondary to urinary tract infection Acute urinary tract infection: urine cultures growing coiliforms, continue Rocephin Bacteremia with Gram-negative rods: Continue Rocephin Acute dehydration: IV fluids Uncontrolled diabetes: Insulin sliding scale Final blood culture and urine cultures reports pending as on 12/05/2024 Repeat blood cultures from 12/04/2024 pending Plan discussed with: Patient My Orders Orders - NIGEL NERI MD Procedure Category Date Status Time Blood Culture BUTCH 12/04/24 In Process 09:13 Date of Service: Dec 05, 2024 Billing Provider: NIGEL NERI MD Common Visit Codes: [id number] INP/OBS CARE(HIGH) NIGEL NERI MD Dec 05, 2024 08:36
[2024-12-05 08:58] VITALS: BP 112/78; PULSE 78; RESP 17; TEMP 98.2; O2SAT 97
[2024-12-05 13:00] VITALS: BP 131/79; PULSE 69; RESP 17; TEMP 98; O2SAT 97
[2024-12-05 17:03] VITALS: BP 115/79; PULSE 77; RESP 18; TEMP 98.6; O2SAT 92
[2024-12-05 21:00] VITALS: BP 134/84; PULSE 83; RESP 18; TEMP 97.7; O2SAT 97
[2024-12-06 01:00] VITALS: BP 124/78; PULSE 83; RESP 17; TEMP 97.9; O2SAT 94
[2024-12-06 05:00] VITALS: BP 115/72; PULSE 72; RESP 18; TEMP 98.1; O2SAT 94
[2024-12-06 08:30] VITALS: BP 120/62; PULSE 66; RESP 16; TEMP 98.2; O2SAT 96
[2024-12-06] MEDS ORDERED: CIPR-173 PO (09:27)
--- NOTE | 2024-12-06 09:29 | DVHPN2 ---
Reviewed: Care Plan, H&P, Labs, Medications, Previous Orders, Radiology Changes from previous H/P or p: No Changes Objective Vitals Vital Signs Date Time Temp Pulse Resp B/P (MAP) Pulse Ox O2 Delivery O2 Flow Rate FiO2 12/06/24 08:00 Room Air* 0 21 12/06/24 05:00 98.1 72 18 115/72 (86) 94 98.1 Intake/Output Intake and Output 12/06/24 07:00 Intake Total 3450 ml Balance 3450 ml Intake Oral 3400 ml IV Total 50 ml # Voids 9 # Bowel Movements 1 Medications Current Medications Medications Dose Ordered Sig/Jamarcus Route Start Time Stop Time Status Last Admin Dose Admin Ceftriaxone Sodium/Dextrose 50 ml @ 50 mls/hr DAILY IV 12/01/24 10:00 12/05/24 09:33 50 MLS/HR Sodium Chloride 10 ml Q8HR IV 11/30/24 22:00 12/06/24 06:00 10 ML Docusate Sodium 100 mg BIDPRN PRN PO 11/30/24 20:15 12/02/24 12:29 100 MG Acetaminophen 650 mg Q6HP PRN PO 11/30/24 20:15 12/02/24 00:48 650 MG Acetaminophen/ Hydrocodone Bitart 1 tab Q4HP PRN PO 11/30/24 20:15 12/01/24 08:45 1 TAB Hydromorphone HCl 0.5 mg Q4HP PRN IV 11/30/24 20:15 12/02/24 18:03 0.5 MG Ondansetron HCl 4 mg Q4HP PRN IV 11/30/24 20:15 Enoxaparin Sodium 40 mg DAILY SC 12/01/24 10:00 12/05/24 09:34 40 MG Diagnostic Test (Pha) 1 strip ACHS 11/30/24 22:00 12/06/24 06:01 1 STRIP Insulin Human Regular ACHS SC 11/30/24 22:00 12/06/24 06:00 2 UNITS Dextrose 50 ml UD PRN IV 11/30/24 20:30 Guaifenesin/ Dextromethorphan 15 ml Q6HP PRN PO 12/02/24 18:30 12/03/24 20:42 15 ML Laboratory Results Laboratory Tests 12/05/24 05:21 Urinalysis Test 11/30/24 14:21 Urine Color Light-yellow (Yellow) Urine Clarity Turbid (Clear) H Urine pH 6.5 (5.0-9.0) Urine Specific [place] 1.012 (1.001-1.035) Urine Protein 1+ (Negative) H Urine Ketones 2+ (Negative) H Urine Blood 2+ /uL (Negative) H Urine Nitrite Negative (Negative) Urine Bilirubin Negative (Negative) Urine Urobilinogen Normal mg/dL (Negative) Urine Leukocyte Esterase 3+ /uL (Negative) Urine RBC 33 /hpf (0 - 4) Urine Microscopic WBC 114 /HPF (0-5) H Urine Squamous Epithelial Cells Few /hpf (<5) Urine Bacteria Few /hpf (None Seen) H Urine Glucose 4+ mg/dL (Normal) H Microbiology Microbiology Date/Time Source Procedure Growth Status 12/04/24 10:46 Blood Blood Culture - Preliminary NO GROWTH AFTER 24 HOURS OF INCUBATION. Resulted 11/30/24 14:21 Voided Urine Urine Culture - Final Escherichia coli Complete Labs and/or images reviewed: Labs reviewed by me, Image(s) reviewed by me Assessment/Plan Assessment/Plan Sepsis secondary to urinary tract infection Acute urinary tract infection: urine cultures growing E coli, continue Rocephin Bacteremia with E coli treated with Rocephin repeat blood cultures came neg Acute dehydration: IV fluids Uncontrolled diabetes: Insulin sliding scale Patient feels better afebrile asymptomatic and wants to go home Plan discussed with: Patient Date of Service: Dec 06, 2024 Billing Provider: NIGEL NERI MD Common Visit Codes: [id number] INP/OBS CARE(HIGH) NIEGL NERI MD Dec 06, 2024 09:29
--- NOTE | 2024-12-06 09:32 | DVHDS2 ---
Discharge Summary Date of Admission Nov 30, 2024 at 20:12 Date of Discharge: Dec 06, 2024 Admitting Diagnosis Flank pain Wounds: None Labs/Diagnostic Data: Laboratory Results Test 12/06/24 05:52 12/05/24 05:21 12/03/24 05:43 11/30/24 14:55 POC Glucose 145 mg/dl (70-106) White Blood Count 7.8 10^3/uL (4.4-10.8) Red Blood Count 4.26 10^6/uL (4.0-5.20) Hemoglobin 13.0 g/dL (12.2-16.2) Hematocrit 37.8 % (36.0-46.0) Mean Corpuscular Volume 88.8 fL (80.0-100.0) Mean Corpuscular Hemoglobin 30.6 pg (28.0-32.0) Mean Corpuscular Hemoglobin Concent 34.4 g/dL (32.0-36.0) Red Cell Distribution Width 13.2 % (11.8-14.3) Platelet Count 432 10^3/uL (140-450) Mean Platelet Volume 7.3 fL (6.9-10.8) Neutrophils (%) (Auto) 57.2 % (37.0-80.0) Lymphocytes (%) (Auto) 28.3 % (10.0-50.0) Monocytes (%) (Auto) 11.1 % (0.0-12.0) Eosinophils (%) (Auto) 2.9 % (0.0-7.0) Basophils (%) (Auto) 0.5 % (0.0-2.0) Neutrophils # (Auto) 4.5 10 ^3/uL (1.6-8.6) Lymphocytes # (Auto) 2.2 10 ^3/uL (0.4-5.4) Monocytes # (Auto) 0.9 10 ^3/uL (0-1.3) Eosinophils # (Auto) 0.2 10 ^3/uL (0-0.8) Basophils # (Auto) 0 10 ^3/uL (0-0.2) Nucleated Red Blood Cells 0.0 % Sodium Level 140 mmol/L (136-145) Potassium Level 3.9 mmol/L (3.5-5.1) Chloride Level 105 mmol/L (98-107) Carbon Dioxide Level 25 mmol/L (20-31) Anion Gap 10 (5-15) Blood Urea Nitrogen 10 mg/dL (9-23) Creatinine 0.67 mg/dL (0.550-1.02) Glomerular Filtration Rate Calc 103 mL/min (>90) BUN/Creatinine Ratio 14.9 (10.0-20.0) Serum Glucose 178 mg/dL (74-106) Calcium Level 9.9 mg/dL (8.7-10.4) Total Bilirubin 0.6 mg/dL (0.2-1.0) Aspartate Amino Transferase (AST) 92 U/L (13-40) Alanine Aminotransferase (ALT) 87 U/L (7-40) Alkaline Phosphatase 239 U/L (46-116) Total Protein 7.6 g/dL (5.7-8.2) Albumin 4.4 g/dL (3.2-4.8) Differential Total Cells Counted 100.0 (100) Neutrophils % (Manual) 70 (37.0-80.0) Band Neutrophils % (Manual) 2 Lymphocytes % (Manual) 13 (10.0-50.0) Monocytes % (Manual) 10 (0-12) Eosinophils % (Manual) 2 (0-7) Basophils % (Manual) 0 (0.0-2.0) Metamyelocytes % (manual) 0 Myelocytes % (Manual) 0 Promyelocytes % (Manual) 0 Blast Cells % (Manual) 3 Reactive Lymphocytes 0 Platelet Estimate Adequate Lactic Acid Level 1.6 mmol/L (0.4-2.0) Beta HCG, Quantitative 1.0 mIU/mL (1.5-4.2) Hepatitis B Surface Antigen Negative (Negative) Hepatitis C Antibody Negative (Negative) Test 11/30/24 14:21 Urine Color Light-yellow (Yellow) Urine Clarity Turbid (Clear) Urine pH 6.5 (5.0-9.0) Urine Specific [place] 1.012 (1.001-1.035) Urine Protein 1+ (Negative) Urine Ketones 2+ (Negative) Urine Blood 2+ /uL (Negative) Urine Nitrite Negative (Negative) Urine Bilirubin Negative (Negative) Urine Urobilinogen Normal mg/dL (Negative) Urine Leukocyte Esterase 3+ /uL (Negative) Urine RBC 33 /hpf (0 - 4) Urine Microscopic WBC 114 /HPF (0-5) Urine Squamous Epithelial Cells Few /hpf (<5) Urine Bacteria Few /hpf (None Seen) Urine Glucose 4+ mg/dL (Normal) Other Laboratory Tests 12/05/24 05:21 Brief Hx & Hospital Course: 54-year-old female with a history of diabetes came in complaining of flank pain found to have acute urinary tract infection treated with Rocephin. The patient was found to have E coli in the urine and also in the blood repeat blood cultures came negative patient feels better being discharged home on Cipro for acute pyelonephritis and UTI. Consults/Reason for consult None Operations or Procedures CT abdomen pelvis without contrast Condition at Discharge: Fair Final Diagnosis/Problems List Sepsis secondary to urinary tract infection Acute urinary tract infection: urine cultures growing E coli, continue Rocephin Bacteremia with E coli treated with Rocephin repeat blood cultures came neg Acute dehydration: IV fluids Uncontrolled diabetes: Insulin sliding scale Discharge Disposition: Home Discharge Instruct/Medications Diet: Consistent carbohydrate Activity: Light activity Follow Up/Referral: Follow up with your primary Dr Medications: Cipro Transmitted to pharmacy 39 (Time taken for discharge summary 39 minutes) Discharge Statement: "Patient was advised to return to the ER or call 911 if any headaches, dizziness, shortness of breath, chest pain, abdominal pain, bleeding, fevers, or worsening of medical condition. Patient was counseled about treatment plan, medications, possible side effects, patientverbalized understanding. All questions were answered to the best of my ability. This discharge took greater then 30 minutes in planning, reviewing documentation, counseling the patient, and discussing with other team members." ASSESSMENT ASSESSMENT Hospital Course Improved Assessment Sepsis secondary to urinary tract infection Acute urinary tract infection: urine cultures growing E coli, continue Rocephin Bacteremia with E coli treated with Rocephin repeat blood cultures came neg Acute dehydration: IV fluids Uncontrolled diabetes: Insulin sliding scale Date of Service: Dec 06, 2024 Billing Provider: NIGEL NERI MD Common Visit Codes: [id number] INP/OBS CARE(HIGH) NIGEL NERI MD Dec 06, 2024 09:32
[2024-12-06 12:55] VITALS: BP 107/72; PULSE 78; RESP 17; TEMP 97.7; O2SAT 94
== END 2024-12-06 13:37 | disposition home or self-care (01) | DRG 872 ==
LOC: ER 13:50 → OVERFLOW 20:12 → EAST 21:05
PROVIDERS: ADMIT Family Medicine; ATTEND Family Medicine
DX: A41.51 Sepsis due to Escherichia coli [E. coli] (principal); N10 Acute pyelonephritis; E86.0 Dehydration; E11.65 Type 2 diabetes mellitus with hyperglycemia; Z88.0 Allergy status to penicillin
CPT/HCPCS: 36415; 80048; 80053; 81001; 82962; 83605; 84702; 85007; 85025; 85027; 86803; 87040; 87077; 87086; 87088; 87186; 87340; 96365; 96368; 96375; G0378; J0692; J1815; J2405